=== PATIENT | female | born 1980 ===

== ENCOUNTER 2019-11-05 07:36 | Emergency (ER) | payer SELFPAY ==
[2019-11-05] MEDS ORDERED: Bacitracin 1 PK ONE (08:20)
== END 2019-11-05 08:33 | disposition home or self-care (01) ==
LOC: ERS 07:36
DX: L02.214 Cutaneous abscess of groin (principal); E11.9 Type 2 diabetes mellitus without complications; F17.210 Nicotine dependence, cigarettes, uncomplicated; Z79.899 Other long term (current) drug therapy
CPT/HCPCS: 99282